=== PATIENT | male | born 1965 | race Caucasian/White ===

== ENCOUNTER 2017-06-21 16:33 | Emergency (ER) | payer OTHER | END 2017-06-21 19:55 | disposition home or self-care (01) | LOC: D.ER 16:33 | DX: T24.002A Burn of unspecified degree of unspecified site of left lower limb, except ankle and foot, initial encounter (principal); X12.XXXA Contact with other hot fluids, initial encounter; Y93.89 Activity, other specified; Y92.89 Other specified places as the place of occurrence of the external cause ==

== ENCOUNTER 2017-11-03 17:55 | Emergency (ER) | payer OTHER ==
[2017-11-03 20:46] LABS: BASOPHILS 0.3 % (0-2); EOSINOPHILS 1.3 % (0-7); HEMATOCRIT 45.6 % (42.0-54.0); HEMOGLOBIN 15.4 g/dL (13.5-17.5); IMMATURE GRANULOCYTES 0.4 % (0-5); LYMPHOCYTES 26.1 % (15-50); MCH 26.5 pg (26.0-34.0); MCHC 33.8 g/dL (31.0-37.0); MCV 78.4 fL (80.0-100.0); MEAN PLATELET VOLUME 9.7 fL (7.4-10.4); MONOCYTES 10.2 % (2-11); NEUTROPHILS 61.7 % (40-80); PLATELET COUNT 206 10x3/uL (130-400); RBC 5.82 10x6/uL (4.20-6.10); RDW 13.1 % (11.5-14.5); WBC 7.1 10x3/uL (4.8-10.8)
[2017-11-03 21:07] LABS: INR 1.03 (0.85-1.17); PROTIME 13.1 SECONDS (11.6-15.0)
[2017-11-03 21:24] LABS: ALBUMIN 3.8 g/dL (3.4-5.0); ALKALINE PHOSPHATASE 154 U/L (46-116); ALT (SGPT) 52 U/L (10-68); BILIRUBIN - TOTAL 0.24 mg/dL (0.2-1.3); CALC OSMOLALITY 280 mosm/kg (275-300); CALCIUM 8.7 mg/dL (8.5-10.1); CARBON DIOXIDE 24.6 mmol/L (21.0-32.0); CHLORIDE - SERUM 103 mmol/L (98-107); CREATININE - SERUM 0.9 mg/dL (0.6-1.3); GLUCOSE 101 mg/dL (74-106); POTASSIUM - SERUM 3.9 mmol/L (3.5-5.1); PROTEIN - SERUM 6.8 g/dL (6.4-8.2); SODIUM 140 mmol/L (136-145); UREA NITROGEN 17 mg/dL (7-18); eGFR NON AFRICAN AMERICAN > 90 mL/min (90-120)
[2017-11-03 21:30] LABS: CREATINE KINASE 102 UL (21-232)
[2017-11-03 21:32] LABS: TROPONIN-I < 0.017 ng/mL (0.000-0.060)
== END 2017-11-03 22:11 | disposition home or self-care (01) ==
LOC: D.ER 17:55
PROVIDERS: Nurse Practitioner Family
DX: F41.9 Anxiety disorder, unspecified (principal); I10 Essential (primary) hypertension

== ENCOUNTER 2018-04-13 12:23 | Emergency (ER) | payer OTHER ==
[~2018-04-13] VITALS: Ht 165.1 cm; Wt 68.2 kg
[2018-04-13 12:43] VITALS: Ht 165.1 cm; Wt 68.2 kg
[2018-04-13 14:28] LABS: HEMATOCRIT 48.9 % (42.0-54.0); HEMOGLOBIN 16.7 g/dL (13.5-17.5); MCH 26.8 pg (26.0-34.0); MCHC 34.2 g/dL (31.0-37.0); MCV 78.5 fL (80.0-100.0); MEAN PLATELET VOLUME 10.3 fL (7.4-10.4); PLATELET COUNT 210 10x3/uL (130-400); RBC 6.23 10x6/uL (4.20-6.10); RDW 13.5 % (11.5-14.5); WBC 7.5 10x3/uL (4.8-10.8)
[2018-04-13 14:47] LABS: ALKALINE PHOSPHATASE 200 U/L (46-116); ALT (SGPT) 57 U/L (10-68); BILIRUBIN - TOTAL 0.34 mg/dL (0.2-1.3); CALC OSMOLALITY 279 mosm/kg (275-300); CALCIUM 9.1 mg/dL (8.5-10.1); CARBON DIOXIDE 28.7 mmol/L (21.0-32.0); CHLORIDE - SERUM 103 mmol/L (98-107); GLUCOSE 113 mg/dL (74-106); POTASSIUM - SERUM 3.8 mmol/L (3.5-5.1); PROTEIN - SERUM 7.7 g/dL (6.4-8.2); SODIUM 140 mmol/L (136-145); UREA NITROGEN 13 mg/dL (7-18); eGFR NON AFRICAN AMERICAN 83 mL/min (90-120)
[2018-04-13 14:55] LABS: TROPONIN-I < 0.017 ng/mL (0.000-0.060)
[2018-04-13 15:13] LABS: LYMPHOCYTES 19 % (15-50); MONOCYTES 2 % (2-11); NEUTROPHILS 79 % (40-80); PLATELET ESTIMATE NORMAL
[2018-04-13] MEDS ORDERED: TYLENOL W/CODEI1 TAB PO (16:55)
[2018-04-13 17:19] VITALS: BP 150/89
== END 2018-04-13 17:20 | disposition home or self-care (01) ==
LOC: D.ER 12:23
PROVIDERS: Family Medicine
DX: I10 Essential (primary) hypertension (principal); F41.9 Anxiety disorder, unspecified

== ENCOUNTER 2018-08-01 11:18 | Emergency (ER) | payer OTHER ==
[~2018-08-01] VITALS: Ht 165.1 cm; Wt 69.9 kg
[~2018-08-01 11:18] MED LIST: TYLENOL W/CODEI1 TAB PO
[2018-08-01 11:22] VITALS: Ht 165.1 cm; Wt 69.9 kg
[2018-08-01 12:26] LABS: BASOPHILS 0.6 % (0-2); EOSINOPHILS 1.5 % (0-7); HEMATOCRIT 44.7 % (42.0-54.0); HEMOGLOBIN 14.9 g/dL (13.5-17.5); IMMATURE GRANULOCYTES 0.8 % (0-5); MCH 26.6 pg (26.0-34.0); MCHC 33.3 g/dL (31.0-37.0); MCV 79.7 fL (80.0-100.0); MEAN PLATELET VOLUME 9.7 fL (7.4-10.4); MONOCYTES 9.5 % (2-11); NEUTROPHILS 60.6 % (40-80); PLATELET COUNT 178 10x3/uL (130-400); RBC 5.61 10x6/uL (4.20-6.10); RDW 13.6 % (11.5-14.5); WBC 4.8 10x3/uL (4.8-10.8)
[2018-08-01 12:36] LABS: APTT 25.6 SECONDS (22.8-39.4); INR 1.01 (0.85-1.17); PROTIME 12.9 SECONDS (11.6-15.0)
[2018-08-01 12:37] LABS: D-DIMER-QUANTITATIVE < 0.27 ug/mLFEU (0.20-0.54)
[2018-08-01 12:41] LABS: ALBUMIN 3.4 g/dL (3.4-5.0); ALKALINE PHOSPHATASE 143 U/L (46-116); ALT (SGPT) 27 U/L (10-68); BILIRUBIN - TOTAL 0.27 mg/dL (0.2-1.3); CALC OSMOLALITY 283 mosm/kg (275-300); CALCIUM 8.2 mg/dL (8.5-10.1); CHLORIDE - SERUM 107 mmol/L (98-107); CREATININE - SERUM 1.1 mg/dL (0.6-1.3); GLUCOSE 103 mg/dL (74-106); POTASSIUM - SERUM 4.5 mmol/L (3.5-5.1); PROTEIN - SERUM 6.5 g/dL (6.4-8.2); SODIUM 142 mmol/L (136-145); UREA NITROGEN 16 mg/dL (7-18); eGFR NON AFRICAN AMERICAN 74 mL/min (90-120)
[2018-08-01 12:52] LABS: CKMB 0.9 U/L (0.0-3.6); CREATINE KINASE 76 UL (21-232); MAGNESIUM - SERUM 2.5 mg/dL (1.8-2.4); TROPONIN-I < 0.017 ng/mL (0.000-0.060)
[2018-08-01 16:52] VITALS: BP 138/79
== END 2018-08-01 16:53 | disposition home or self-care (01) ==
LOC: D.ER 11:18
PROVIDERS: Family Medicine
DX: F41.9 Anxiety disorder, unspecified (principal); I10 Essential (primary) hypertension; R07.9 Chest pain, unspecified; F41.0 Panic disorder [episodic paroxysmal anxiety]

== ENCOUNTER 2019-05-24 15:43 | Emergency (ER) | payer OTHER ==
[~2019-05-24] VITALS: Ht 165.1 cm; Wt 63.6 kg
[2019-05-24 16:01] VITALS: Ht 165.1 cm; Wt 63.6 kg
[2019-05-24] MEDS ORDERED: FEXOFENADINE H180 MG PO ×2 (17:08→17:37)
[2019-05-24] MEDS ORDERED: ABILIFY10 MG PO (17:08)
[2019-05-24] MEDS ORDERED: CELEXA40 MG PO (17:08)
[2019-05-24] MEDS ORDERED: BUSPAR10 MG PO (17:08)
[2019-05-24] MEDS ORDERED: HYDROXYZINE HCL50 MG PO (17:09)
[2019-05-24] MEDS ORDERED: ZANTAC300 MG PO (17:10)
[2019-05-24] MEDS ORDERED: CYCLOBENZAPRINE10 MG PO (17:10)
[2019-05-24] MEDS ORDERED: MOBIC7.5 MG PO (17:11)
[2019-05-24] MEDS ORDERED: PRAVACHOL20 MG PO (17:12)
[2019-05-24] MEDS ORDERED: RANITIDINE HCL150 M1 PO (17:37)
[2019-05-24] MEDS ORDERED: CORTISPORIN OTI10 M1 EACH EAR (17:38)
[2019-05-24 18:20] VITALS: BP 135/96
== END 2019-05-24 17:53 | disposition home or self-care (01) ==
LOC: D.ER 15:43
DX: H60.502 Unspecified acute noninfective otitis externa, left ear (principal); Z76.0 Encounter for issue of repeat prescription

== ENCOUNTER 2019-08-25 15:07 | Emergency (ER) | payer OTHER ==
[~2019-08-25] VITALS: Ht 165.1 cm; Wt 68.2 kg
[~2019-08-25 15:07] MED LIST changes: +ABILIFY10 MG PO; +BUSPAR10 MG PO; +CELEXA40 MG PO; +CORTISPORIN OTI10 M1 EACH EAR; +CYCLOBENZAPRINE10 MG PO; +FEXOFENADINE H180 MG PO; +HYDROXYZINE HCL50 MG PO; +MOBIC7.5 MG PO; +PRAVACHOL20 MG PO; +RANITIDINE HCL150 M1 PO; +ZANTAC300 MG PO
[2019-08-25 15:14] VITALS: Ht 165.1 cm; Wt 68.2 kg
[2019-08-25 15:38] LABS: BASOPHILS 0.1 % (0-2); EOSINOPHILS 1.4 % (0-7); HEMATOCRIT 47.4 % (42.0-54.0); HEMOGLOBIN 15.5 g/dL (13.5-17.5); IMMATURE GRANULOCYTES 0.4 % (0-5); LYMPHOCYTES 17.7 % (15-50); MCH 26.5 pg (26.0-34.0); MCHC 32.7 g/dL (31.0-37.0); MCV 80.9 fL (80.0-100.0); MEAN PLATELET VOLUME 9.2 fL (7.4-10.4); NEUTROPHILS 73.4 % (40-80); PLATELET COUNT 190 10x3/uL (130-400); RBC 5.86 10x6/uL (4.20-6.10); RDW 13.7 % (11.5-14.5); WBC 7.6 10x3/uL (4.8-10.8)
[2019-08-25 15:47] LABS: CALC OSMOLALITY 283 mosm/kg (275-300); CALCIUM 8.3 mg/dL (8.5-10.1); CARBON DIOXIDE 32.5 mmol/L (21.0-32.0); CHLORIDE - SERUM 105 mmol/L (98-107); GLUCOSE 95 mg/dL (74-106); POTASSIUM - SERUM 4.1 mmol/L (3.5-5.1); SODIUM 142 mmol/L (136-145); UREA NITROGEN 14 mg/dL (7-18); eGFR NON AFRICAN AMERICAN 82 mL/min (90-120)
[2019-08-25 15:53] LABS: ALBUMIN 3.7 g/dL (3.4-5.0); ALKALINE PHOSPHATASE 221 U/L (46-116); ALT (SGPT) 82 U/L (10-68); AMYLASE - SERUM 87 U/L (25-115); BILIRUBIN - TOTAL 0.19 mg/dL (0.2-1.3); LIPASE 293 U/L (73-393); PROTEIN - SERUM 6.7 g/dL (6.4-8.2)
[2019-08-25 16:06] LABS: APPEARANCE CLEAR (CLEAR); BILIRUBIN NEGATIVE (NEGATIVE); COLOR YELLOW (YELLOW); GLUCOSE NEGATIVE (NEGATIVE); KETONE NEGATIVE (NEGATIVE); NITRITE NEGATIVE (NEGATIVE); PROTEIN NEGATIVE (NEGATIVE); UROBILINOGEN NORMAL (NORMAL)
[2019-08-25 16:16] VITALS: BP 154/101
[2019-08-25] MEDS ORDERED: BENTYL 20 MG TA20 MG PO (16:31)
[2019-08-25] MEDS ORDERED: PROTONIX40 MG PO (16:31)
== END 2019-08-25 16:49 | disposition home or self-care (01) ==
LOC: D.ER 15:07
PROVIDERS: Family Medicine
DX: K29.70 Gastritis, unspecified, without bleeding (principal); F41.9 Anxiety disorder, unspecified